=== PATIENT | male | born 1985 | race Caucasian/White ===

== ENCOUNTER 2017-01-29 20:29 | Emergency (ER) | payer OTHER ==
[2017-01-29 20:59] VITALS: BP 146/86
--- NOTE | 2017-01-29 21:12 | EDM.PDOC ---
ED HPI GENERAL MEDICAL PROBLEM - General Chief Complaint: Laceration Stated Complaint: CUT HAND WHITTLING Time Seen by Provider: 01/29/17 21:07 Source of Information: Reports: Patient History Limitations: Reports: No Limitations - History of Present Illness INITIAL COMMENTS - FREE TEXT/NARRATIVE: Pt was using a knife around the campfire around 7pm when cut his left thumb. Believes his tetanus is current as is in the [employer]. Onset: Today Onset Date: 01/29/17 Location: Reports: Upper Extremity, Left Quality: Reports: Ache Severity: Mild Improves with: Reports: None Worsens with: Reports: None Associated Symptoms: Reports: No Other Symptoms Treatments [facility]: Reports: Dressing(s) left thumb Pain Score (Numeric/FACES): 3 - Related Data Allergies Allergy/AdvReac Type Severity Reaction Status Date / Time No Known Allergies Allergy Verified 01/29/17 20:59 Home Meds: Home Meds SUMAtriptan [Imitrex] 50 mg PO BID PRN 01/29/17 [History] Past Medical History Cardiovascular History: Reports: None - Past Surgical History HEENT Surgical History: Reports: Naso-Sinus Surgery Social & Family History - Tobacco Use Smoking Status *Q: Never Smoker - Caffeine Use Caffeine Use: Reports: Coffee - Recreational Drug Use Recreational Drug Use: No ED ROS GENERAL - Review of Systems Review Of Systems: See Below Constitutional: Reports: No Symptoms HEENT: Reports: No Symptoms Respiratory: Reports: No Symptoms Cardiovascular: Reports: No Symptoms Endocrine: Reports: No Symptoms GI/Abdominal: Reports: No Symptoms Skin: Reports: Other (laceration to left thumb) Neurological: Reports: No Symptoms ED EXAM, SKIN/RASH Exam: See Below Exam Limited By: No Limitations General Appearance: Alert, WD/WN, No Apparent Distress Neck: Normal Inspection, Supple, Non-Tender, Full Range of Motion Respiratory/Chest: No Respiratory Distress, Lungs Clear, Normal Breath Sounds, No Accessory Muscle Use, Chest Non-Tender Cardiovascular: Normal Peripheral Pulses, Regular Rate, Rhythm, No Edema, No Gallop, No JVD, No Murmur, No Rub Extremities: Other (laceration to left thumb measuring ) Neurological: Alert, Oriented, CN II-XII Intact, Normal Cognition, Normal Gait, Normal Reflexes, No Motor/Sensory Deficits Skin: Other (laceration to left thumb ) Location, Skin: Upper Extremity, Left Lymphatic: No Adenopathy ED SKIN PROCEDURES - Laceration/Wound Repair Left Hand Lac/wound length in cm: 2 Appearance: Subcutaneous Distal NVT: Neuro & Vascular Intact, No Tendon Injury Anesthetic Type: Digital Local Anesthesia - Lidocaine (Xylocaine): 1% Plain Local Anesthetic Volume: 5cc Skin Prep: Chlorhexidine (Hibiciens) Exploration/Debridement/Repair: Wound Explored, No Foreign Material Found, Multiple Flaps Aligned Closed with: Sutures Suture Size: 4-0 # of Sutures: 7 Suture Type: Other (ethilon) Drain Placement: No Sterile Dressing Applied: Nurse Tetanus Status Addressed: Yes Complications: No Course - Vital Signs Last Recorded V/S: Last Vital Signs Temp 98.1 F 01/29/17 21:03 Pulse 65 01/29/17 21:03 Resp 18 01/29/17 21:03 BP 146/86 H 01/29/17 21:03 Pulse Ox 98 01/29/17 21:03 - Orders/Labs/Meds Meds: Medications Discontinued Medications Generic Name Dose Route Start Last Admin Trade Name Wayne PRN Reason Stop Dose Admin Bacitracin 1 dose 01/29/17 21:14 01/29/17 21:27 Bacitracin Oint 1 Gm TOP 01/29/17 21:15 1 dose ONETIME ONE Administration Lidocaine HCl 5 ml 01/29/17 21:13 01/29/17 21:28 Xylocaine-Mpf 1% INJECT 01/29/17 21:14 5 ml ONETIME ONE Administration Departure - Departure Time of Disposition: 21:41 Disposition: Home, Self-Care 01 Condition: good Clinical Impression: Laceration of thumb Qualifiers: Encounter type: initial encounter Damage to nail status: without damage Foreign body presence: without foreign body Laterality: left Qualified Code(s): S61.012A - Laceration without foreign body of left thumb without damage to nail , initial encounter - Discharge Information Instructions: Laceration Care, Adult, [id number] Forms: ED Department Discharge Additional Instructions: Wound closed with simple sutures x 7. Dressed with bacitracin and pressure dressing. To leave in place x 24 hours. Monitor for infection. Followup for suture removal in 7-10 days and prn. - Problem List Review Problem List Initiated/Reviewed/Updated: Yes
[2017-01-29] MEDS ORDERED: Bacitracin Oint 1 GM U/D Packet TOP ONE (21:14)
== END 2017-01-29 21:49 | disposition home or self-care (01) ==
LOC: JP.ED 20:29
DX: S61.012A Laceration without foreign body of left thumb without damage to nail, initial encounter (principal); W26.0XXA Contact with knife, initial encounter
CPT/HCPCS: 12001; 99283-25